=== PATIENT | male | born 1965 | race Caucasian/White ===

== ENCOUNTER 2018-03-13 01:44 | Emergency (ER) | payer OTHER ==
[~2018-03-13] VITALS: Ht 182.9 cm; Wt 140.2 kg
[2018-03-13 02:17] LABS: HEMATOCRIT 40.4 % (38.0-50.0); HEMOGLOBIN 13.3 G/DL (12.5-16.6); MCH 28.9 PG (29.0-34.0); MCHC 32.9 G/DL (30.0-36.0); MCV 87.6 FL (86-99); PLATELET COUNT 269 K/uL (156-360); RBC DIS.WIDTH-CV 13.1 % (11.8-14.6); RBC DIS.WIDTH-SD 41.2 % (39-53); RED BLOOD COUNT 4.61 M/uL (4.00-5.50); WHITE BLOOD COUNT 9.5 K/uL (4.1-10.2)
[2018-03-13 02:24] LABS: APPEARANCE SL.HAZY ((CLEAR)); BILIRUBIN NEGATIVE; BLOOD LARGE; COLOR YELLOW ((YELLOW)); GLUCOSE (STRIP) NEGATIVE; KETONES NEGATIVE; LEUKOCYTES NEGATIVE; NITRITE NEGATIVE; PROTEIN (STRIP) 100; SPECIFIC GRAVITY 1.024 (1.000-1.030); UROBILINOGEN 0.2 MG/DL (0.2-1.0)
[2018-03-13 02:44] LABS: BACTERIA 1+ /HPF; EPITHELIAL CELLS RARE /HPF; MUCUS NONE SEEN /LPF; RED BLOOD CELLS TNTC /HPF (0-5); UCUL ADDED? YES
[2018-03-13 02:57] LABS: ALBUMIN 4.3 g/dL (3.2-4.8)
[2018-03-13 02:58] LABS: CHLORIDE 104 mEq/L (99-109); POTASSIUM 3.9 mEq/L (3.7-5.4); SODIUM 141 mEq/L (136-147)
[2018-03-13 03:00] LABS: GLUCOSE 135 mg/dL (70-99); TOTAL PROTEIN 7.6 g/dL (6.4-8.3)
[2018-03-13 03:02] LABS: TOTAL BILIRUBIN 0.9 mg/dL (0.0-1.0)
[2018-03-13 03:03] LABS: ALKALINE PHOSPHATASE 102 IU/L (3-129)
[2018-03-13 03:04] LABS: CREATININE 1.3 mg/dL (0.6-1.3); GFR ESTIMATE (CALCULATED) > 59 mL/min/ (58.99-99999)
[2018-03-13 03:05] LABS: AST (GOT) 27 IU/L (2-34); UREA NITROGEN (BUN) 23 mg/dL (9-23)
[2018-03-13 03:06] LABS: ALT (GPT) 29 IU/L (3-49)
[2018-03-13] MEDS ORDERED: NORCO 5/3251 TABLET PO (04:49)
[2018-03-13 05:15] VITALS: BP 168/91
[2018-03-17] MEDS ORDERED: DIOVAN HCT 11 TABLET PO (09:23)
[2018-03-17] MEDS ORDERED: MULTIVITAMIN1 EAC2 PO (09:24)
[2018-03-17] MEDS ORDERED: CRESTOR10 MG PO (09:24)
== END 2018-03-13 05:15 | disposition home or self-care (01) ==
LOC: EME 01:44
DX: C64.2 Malignant neoplasm of left kidney, except renal pelvis (principal); R31.9 Hematuria, unspecified; I10 Essential (primary) hypertension; E78.5 Hyperlipidemia, unspecified
CPT/HCPCS: 74176; 74178; 80053; 81003; 85027; 87086; 99281; 99284; J7030

== ENCOUNTER → 2018-03-18 | Outpatient (CLI) | payer OTHER ==
[~2018-03-18] MED LIST: CRESTOR10 MG PO; DIOVAN HCT 11 TABLET PO; MULTIVITAMIN1 EAC2 PO; NORCO 5/3251 TABLET PO
== END | disposition home or self-care (01) ==
LOC: CDC 09:10
DX: Z01.810 Encounter for preprocedural cardiovascular examination (principal); N28.89 Other specified disorders of kidney and ureter
CPT/HCPCS: 93000

== ENCOUNTER 2018-03-22 08:39 | Inpatient (IN) | payer OTHER ==
[~2018-03-22] VITALS: Ht 182.9 cm; Wt 131.5 kg
[2018-03-22 10:33] VITALS: BP 146/88
[2018-03-22 16:22] VITALS: BP 136/83
[2018-03-22 20:00] VITALS: BP 123/63
[2018-03-23 00:05] VITALS: BP 123/71
[2018-03-23 04:15] VITALS: BP 123/68
[2018-03-23 06:07] LABS: CHLORIDE 104 MEQ/L (99-109); GLUCOSE 125 mg/dL (70-99); POTASSIUM 5.1 MEQ/L (3.7-5.4); SODIUM 137 MEQ/L (136-147); UREA NITROGEN (BUN) 16 mg/dL (9-23)
[2018-03-23 06:10] LABS: CREATININE 1.7 MG/DL (0.6-1.3); GFR ESTIMATE (CALCULATED) 46 mL/min/ (58.99-99999)
[2018-03-23 07:02] LABS: HEMATOCRIT 37.8 % (38.0-50.0); HEMOGLOBIN 12.6 G/DL (12.5-16.6); MCHC 33.3 G/DL (30.0-36.0); MCV 86.9 FL (86-99); PLATELET COUNT 278 K/uL (156-360); RBC DIS.WIDTH-CV 12.8 % (11.8-14.6); RBC DIS.WIDTH-SD 40.7 % (39-53); RED BLOOD COUNT 4.35 M/uL (4.00-5.50); WHITE BLOOD COUNT 16.3 K/uL (4.1-10.2)
[2018-03-23 07:57] VITALS: BP 136/75
[2018-03-23 16:35] VITALS: BP 158/74
[2018-03-23 20:39] VITALS: BP 135/74
[2018-03-23 23:46] VITALS: BP 142/72
[2018-03-24 03:10] VITALS: BP 144/69
[2018-03-24 05:43] LABS: HEMATOCRIT 38.9 % (38.0-50.0); HEMOGLOBIN 12.5 G/DL (12.5-16.6); MCH 28.5 PG (29.0-34.0); MCHC 32.1 G/DL (30.0-36.0); MCV 88.6 FL (86-99); PLATELET COUNT 255 K/uL (156-360); RBC DIS.WIDTH-CV 12.8 % (11.8-14.6); RBC DIS.WIDTH-SD 42.5 % (39-53); RED BLOOD COUNT 4.39 M/uL (4.00-5.50); WHITE BLOOD COUNT 11.9 K/uL (4.1-10.2)
[2018-03-24 06:10] LABS: CHLORIDE 104 MEQ/L (99-109); CREATININE 1.6 MG/DL (0.6-1.3); GFR ESTIMATE (CALCULATED) 49 mL/min/ (58.99-99999); POTASSIUM 4.1 MEQ/L (3.7-5.4); SODIUM 141 MEQ/L (136-147); UREA NITROGEN (BUN) 17 mg/dL (9-23)
[2018-03-24 06:15] LABS: GLUCOSE 92 mg/dL (70-99)
[2018-03-24 06:50] VITALS: BP 141/84
[2018-03-24 15:05] VITALS: BP 170/81
[2018-03-24 20:05] VITALS: BP 145/82
[2018-03-24 23:48] VITALS: BP 146/82
[2018-03-25 04:39] VITALS: BP 133/75
[2018-03-25 07:30] VITALS: BP 143/86
== END 2018-03-25 10:45 | disposition home or self-care (01) | DRG 658 ==
LOC: 2SOUTH 08:39 → 5EAST 09:52 → 2SOUTH 10:04 → ENRESERV 11:33 → 2SOUTH 15:11 → 5EAST 16:11 → ENPENDDIS 03-25 → 5EAST 03-25 10:45
PROVIDERS: Nurse Practitioner Adult Health; Urology
PROC: 0TT10ZZ Resection of Left Kidney, Open Approach (ICD-10-PCS; principal; 2018-03-22)
DX: C64.2 Malignant neoplasm of left kidney, except renal pelvis (principal); E66.3 Overweight; Z68.39 Body mass index [BMI] 39.0-39.9, adult
CPT/HCPCS: 80048; 85027; 88307; 94799; J0131; J0690; J1100; J1170; J1580; J1885; J2250; J2405; J2710; J3010; J7120; J7643